=== PATIENT | male | born 1935 | race Caucasian/White ===

== ENCOUNTER 2020-07-26 10:22 | Outpatient (RCR) | payer MEDICARE, SELFPAY ==
[2020-07-16 09:08] VITALS: BMI 24.1
== END 2020-07-26 23:59 ==
LOC: IMMUN 10:22
PROVIDERS: PCP Internal Medicine; Visit Provider Family Medicine
DX: Z23 Encounter for immunization (principal)
CPT/HCPCS: 0011A; 0012A; 91301

== ENCOUNTER → 2020-07-30 06:45 | Outpatient (CLI) | payer MEDICARE, SELFPAY ==
[2020-07-16 09:08] VITALS: BMI 24.1
--- NOTE | 2020-07-30 15:34 | STRESSREP_ITS ---
Stress Test Report Pharmacologic myocardial perfusion stress test. 84-year-old man with a history of chronic persistent atrial fibrillation. Stress protocol: Resting EKG demonstrates atrial fibrillation with a rate of 63 bpm normal intervals are noted resting blood pressure is 194 110 mmHg. 0.4 mg of regadenoson was infused per usual protocol followed by rapid venous saline flush injection continuous EKG monitoring was performed. The maximum heart rate attained was 87 bpm which was 63% of max impacted heart rate the maximum workload was 1 metabolic equivalent. At rest there were no ST or T wave changes noted suggest abnormal flow reserve at peak infusion nonspecific ST-T wave changes were noted with no meet the criteria for ischemia. No clinical angina was noted. Myocardial perfusion protocol. 11.5 mCi of technetium 99m sestamibi was injected at rest. 0.4 mg of regadenoson was infused per usual protocol. At peak infusion 32.6 mCi of clare hnetium 99m sestamibi was injected stress images were obtained stress and rest images were reconstructed and compared in the short axis vertical long horizontal long axis. Gated images were also obtained per Perfusion SPECT analysis: Review of the stress images demonstrate normal uptake of tracer noted in all areas of the myocardium the resting images similar demonstrate normal uptake of tracer noted in all areas of the myocardium. No reversibility is noted suggest ischemia no previous infarct is noted. Gated SPECT analysis: The gated ejection fraction is 67%. Conclusion: Normal pharmacologic myocardial perfusion stress test. Chronic atrial fibrillation.
== END ==
PROVIDERS: PCP Internal Medicine; Referring Provider Physician Assistant Medical; Visit Provider Physician Assistant Medical
DX: R07.9 Chest pain, unspecified (principal)
CPT/HCPCS: 78452; 93017; A9500; A4216; J2785

== ENCOUNTER → 2020-11-06 12:23 | Outpatient (CLI) | payer MEDICARE, SELFPAY ==
[2020-11-06 08:32] VITALS: BMI 23.9
--- NOTE | 2020-11-06 12:30 | RAD_ITS ---
STUDY: X-RAY CHEST REASON FOR EXAM: Male, 85 years old. Cad TECHNIQUE: PA and lateral views of the chest. COMPARISON: Comparison is made with prior study dated 11/07/2011. FINDINGS: There is hyperinflation of the lungs consistent with chronic obstructive lung disease (COPD). There is a 8.5 mm rounded nodular density in the right lung base. This may represent a nipple shadow. Repeat frontal chest radiograph with nipple markers recommended. There is no demonstrated pleural abnormality. Normal size heart. Normal mediastinum and slick. Normal visualized pulmonary arteries. There is atherosclerotic calcification of the aortic arch with tortuosity. There are degenerative changes of the visualized thoracic spine. Normal visualized ribs, clavicles, and shoulders. There is no demonstrated abnormality of the visualized soft tissue structures of the upper abdomen. RAD/Chest PA and Lateral IMPRESSION: Hyperinflation. New 8.5 mm nodular density at the right lung base. This may represent a nipple shadow. Repeat frontal radiograph with nipple markers recommended. Electronically Signed: Jeffrey Jama MD at 12:31 EDT , Service support ,
[2020-11-06 13:52] LABS: Absolute Lymphocyte Count 1.41 X10^3/uL (0.83-4.51); Absolute Neutrophil Count 4.7 X10^3/uL (2.0-7.7); Basophil# 0.04 X10^3/uL; Basophil% 0.6 % (0-1); Eosinophil# 0.07 X10^3/uL; Hematocrit 43.7 % (40-54); Hemoglobin 14.2 g/dL (13.0-16.5); Lymphocyte # 1.41 X10^3/ul (0.83-4.51); Lymphocyte % 20.6 % (19-41); Mean Corp Hgb Conc 32.5 g/dL (32-36); Mean Corpuscular Hgb 30.1 pg (27.0-32.0); Mean Corpuscular Volume 92.6 fL (80-94); Mean Platelet Vol. 10.8 fl (6.2-12.0); Monocyte# 0.65 X10^3/uL; Monocyte% 9.5 % (0-10); NRBC Flagged by Analyzer 0 % (0-5); Neutrophil # 4.66 X10^3/uL (2.7-7.7); Neutrophil % 67.9 % (47-70); Platelet Count 161 K/mm3 (150-450); RBC Distribution Width CV 12.8 % (11.6-14.6); RBC Distribution Width SD 44.1 fl (35.1-43.9); Red Blood Count 4.72 M/mm3 (4.6-6.2); White Blood Count 6.9 K/mm3 (4.4-11.0)
[2020-11-06 14:16] LABS: Anion Gap 2 (5-15); BUN 22 mg/dL (7-18); BUN/Creat Ratio 17.7 RATIO (10-20); Calcium,Total 9.8 mg/dL (8.5-10.1); Chloride 109 mmol/L (98-107); Creatinine, Serum 1.24 mg/dL (0.70-1.30); EST Glomerular Filtration Rate 59 mL/min (>60); Est Glom Filt Rate - Afr Amer 72 mL/min (>60); Glucose 77 mg/dL (74-106); Potassium 4.3 mmol/L (3.5-5.1); Sodium Level 140 mmol/L (136-145)
== END ==
PROVIDERS: PCP Internal Medicine; Referring Provider Internal Medicine Cardiovascular Disease; Visit Provider Internal Medicine Cardiovascular Disease
DX: I48.11 Longstanding persistent atrial fibrillation (principal); R07.9 Chest pain, unspecified; E78.5 Hyperlipidemia, unspecified; Z95.5 Presence of coronary angioplasty implant and graft
CPT/HCPCS: 36415; 71046; 80048; 85025

== ENCOUNTER 2020-11-12 08:47 | Day surgery (SDC) | payer MEDICARE, SELFPAY ==
[2020-11-06 08:32] VITALS: BMI 23.9
[2020-11-09 07:05] VITALS: BMI 23.9
[2020-11-12] VITALS (13 sets, daily range): BP systolic 134–169; BP diastolic 66–98; PULSE 44–65; RESP 14–20; TEMP 36.4–36.9; O2SAT 97–100; BMI 23.9
[2020-11-12 09:01] LABS: INR Fingerstick 1.3; Prothrombin Time Fingerstick 15.7 SEC (11.9-14.4)
--- NOTE | 2020-11-12 11:20 | CL.D_ITS ---
Patient Name: NATE MEZA Study Date: 11/12/2020 Performing: Juan Kaminski MD Ht: 66.92 inches 170 cm : 1935 Wt: 152.12 lbs 69 kg Age: 85 Gender: male BSA: 1.8 PROCEDURE(S) PERFORMED [id number]-LWT/COR/LV [id number], EACH ADD'L CORONARY ART, SAME MAJOR [id number] W OR WO PTCA, SINGLE CORONARY ARTERY CLINICAL PROFILE AND INDICATIONS Indications: Suspected CAD Heart Failure: None Stress/Imaging Date: 08/19/20ress Test with SPECT MPI: Negative CAD Presentations: Stable angina. CONCLUSIONS Previously placed stent in the LAD is patent with a poststenotic area of 75% stenosis, and a second d iagonal vessel with an ostial 60 to 70% stenosis. Moderate disease noted in the circumflex artery an d mild disease in the right coronary artery. Preserved ejection fraction. RECOMMENDATIONS Referred for immediate PCI DESCRIPTION OF PROCEDURE The patient arrived to the procedure lab. The risks and benefits of the procedure as well as a full d escription of our services here and current unavailability of surgical backup were fully explained to the patient and/or their significant other prior to the catheterization. The Timeout was completed, verifying the correct patient and procedure. The patient's procedural site was prepped and draped in the usual fashion. Local anesthetic was given subcutaneously to right radial region with Lidocaine 2% . Using a modified Seldinger technique, arterial access was obtained via the right radial artery, a 6 Fr sheath was inserted. Left Coronary Artery selective angiography was performed in multiple views u sing a 5 Fr. 4.0 [place] catheter. Right Coronary Artery selective angiography was then performed in mu ltiple views using a 5 Fr. 4.0 [place] catheter. Left Ventriculography was performed in CEVALLOS projection using a 5 Fr. Pigtail catheter. LV to AO pullback pressures were then recorded. CORONARY ANGIOGRAPHY DOMINANCE: Right Dominant LEFT HEART ASSESSMENT Left Ventricular Ejection Fraction: by LV Gram 65 % Normal LV wall motion Normal Left Ventricular systolic function LEFT MAIN: Mild luminal irregularities LEFT ANTERIOR DESCENDING ARTERY: MID LAD: Previously placed stent is patent, 75 post stent % Stenosis DIAGONAL 1: Ostial - 40 % Stenosis DIAGONAL 2: Ostial - 60 % Stenosis CIRCUMFLEX ARTERY: MID CIRC: 50 % Stenosis RIGHT CORONARY ARTERY: PROX RCA: 30 % Stenosis COMPLICATIONS PROCEDURE MEDICATIONS Fentanyl 50 mcg IV Versed 1 mg IV Oxygen: 2 L/min via nasal cannula Heparin diluted in 23cc Heparinized saline. Patient given 10cc IA of this solution. 11/12/2020 10:52: 39 Heparin 4000 unit(s) IV 11/12/2020 11:12:05 Verapamil 2.5mg, Ntg 100mcgs, 2000 units of Heparin diluted in 23cc Heparinized saline. Patient give n 10cc IA of this solution. 11/12/2020 10:52:39 SUMMARY OF HEMODYNAMIC DATA Time AIR REST ECG 09:16:19 AO 202/110 (144) SA 10:43:08 AO 156/84 (109) 10:49:12 AO 132/83 (103) 10:54:53 LV 141/4, 6 11:00:51 LV 147/4, 5 11:00:58 LV 153/9, 10 11:01:40 LV 136/8, 8 11:01:46 LVp 130/7, 8 11:01:49 AOp 129/74 (98) 11:01:54 Signed By Juan Kaminski MD On 11/12/2020 11:19:11 Juan Kaminski MD
[2020-11-12] MEDS: TICAGRELOR 90 MG TABLET 180 MG PO (12:09)
[2020-11-12] MEDS: 0.9% Normal Saline 1,000 ML 80 ML IV (12:09)
--- NOTE | 2020-11-12 12:26 | CL.I_ITS ---
Patient Name: NATE MEZA Study Date: 11/12/2020 Performing: Paulette Andrade MD Ht: 66.92 inches 170 cm : 1935 Wt: 152.12 lbs 69 kg Age: 85 Gender: male BSA: 1.8 PROCEDURE(S) PERFORMED [id number], EACH ADD'L CORONARY ART, SAME MAJOR [id number] W OR WO PTCA, SINGLE CORONARY ARTERY CLINICAL PROFILE AND CO-MORBIDITIES Indications: Suspected CAD Heart Failure: None Stress/Imaging Date: 08/19/20 Stress Test with SPECT MPI: Negative CAD Presentations: Stable angina. CONCLUSIONS Successful PCI with FREDY to LAD and PTCA alone to D2 RECOMMENDATIONS DESCRIPTION OF PROCEDURE The patient arrived to the procedure lab. The risks and benefits of the procedure as well as a full d escription of our services here and current unavailability of surgical backup were fully explained to the patient and/or their significant other prior to the catheterization. The Timeout was completed, verifying the correct patient and procedure. The patient's procedural site was prepped and draped in the usual fashion. Local anesthetic was given subcutaneously to right radial region with Lidocaine 2% Using a modified Seldinger technique,arterial access was obtained via the right radial artery, a 6Fr sheath was inserted. Left Coronary Artery selective angiography was performed in multiple views usin g a 5 Fr. 4.0 [place] catheter. Right Coronary Artery selective angiography was then performed in multi ple views using a 5 Fr. 4.0 [place] catheter. Left Ventriculography was performed in CEVALLOS projection usi ng a 5 Fr. Pigtail catheter. LV to AO pullback pressures were then recorded.The images were reviewed and options discussed. A decision was then made to proceed with an Intervention, IVUS o r other adjunct procedure. XB4 Guide catheter was inserted and engaged into the LCA. BMW Guide wire was advanced to the 2nd Diagonal. RUNTHROUGH Guide wire was advanced to the LAD. 2.0X12 EMERGE Balloon catheter was inserted ON THE BMW Balloon catheter was advanced across lesion in the second diagonal, ostial PTCA balloon in flated at 6 atms for 15 secs. PTCA balloon inflated at 6 atms for 12 secs. 2.5X26 ORSIRO Drug Eluting stent was advanced across the lesion in the LAD, mid. ON THE RUNTHROUGH WIRE Angiogram performed pre stent deployment. BMW Guide wire was advanced to the 2nd Diagonal through the stent 3.5X8 Balloon ca theter was inserted post stent. ON THE RUNTHROUGH PTCA balloon inflated at 6 atms for 13 secs. PTCA b alloon inflated at 10 atms for 12 secs. Angiogram performed post stent deployment. Angiogram performe d pre balloon dilatation. 1.5x15 emerge Balloon catheter was inserted on the bmw down the 2nd diag PT CA balloon inflated at 10 atms for 10 secs. 2.5x15 emerge Balloon catheter was inserted post stent on the runthrough The arterial sheath was pulled and a TR Band was applied for hemostasi s - 17cc air INTERVENTION INFORMATION LESION SITE: LAD (Mid) Lesion Complexity: High/C, chronic total occlusion: No, lesion at bifurcation: Yes, thrombus present: No, lesion length: 20 mm, culprit lesion: Yes, Previously treated lesion: No, In-stent restenosis: N o Pre Stenosis: 80 % Pre intervention ARSLAN flow: 3 PROCEDURE: Drug Eluting Stent with post dilatation the proximal part of the stent was post dilated with a 3.5 mm balloon and kissing balloon inflation w as also performed in the end. Post Stenosis: 0 % Post intervention ARSLAN flow: 3 Lesion Devices: [employer] 6 Fr EBU3.5 100cm Guide Catheter Cardinal 6 Fr XB4.0 100cm Guide Catheter Terumo .014 Runthrough Extra Floppy 180cm straight John Sci EMERGE MR 2.00x12 BALLOON John Sci EMERGE MR 3.50x08 BALLOON John Sci EMERGE MR 2.50x15 BALLOON LESION SITE: 2nd Diagonal (Ostial) Lesion Complexity: High/C, chronic total occlusion: No, lesion at bifurcation: Yes, thrombus present: No, lesion length: 10 mm, culprit lesion: Yes, Previously treated lesion: No Pre Stenosis: 70 % Pre intervention ARSLAN flow: 3 PROCEDURE: Balloon Angioplasty This vessel was jailed by the stent in the LAD. The lesion was predilated prior to stent in the LAD a nd after the stent deployment kissing balloon inflation was performed as part of a provisional stent approach Post Stenosis: 70 % Post intervention ARSLAN flow: 3 Lesion Devices: [place] .014 BMW Ryan Straight 190cm Cardinal 6 Fr XB4.0 100cm Guide Catheter John Sci EMERGE MR 2.00x12 BALLOON John Sci EMERGE MR 1.50x15 BALLOON COMPLICATIONS No Complications PROCEDURE MEDICATIONS Fentanyl 50 mcg IV Versed 1 mg IV Oxygen: 2 L/min via nasal cannula Brilinta 180 mg PO @ 11/12/2020 12:09:52 Heparin diluted in 23cc Heparinized saline. Patient given 10cc IA of this solution. 11/12/2020 10:52: 39 Heparin 4000 unit(s) IV 11/12/2020 11:12:05 Verapamil 2.5mg, Ntg 100mcgs, 2000 units of Heparin diluted in 23cc Heparinized saline. Patient give n 10cc IA of this solution. 11/12/2020 10:52:39 SUMMARY OF HEMODYNAMIC DATA Time AIR REST ECG 09:16:19 AO 202/110 (144) SA 10:43:08 AO 156/84 (109) 10:49:12 AO 132/83 (103) 10:54:53 LV 141/4, 6 11:00:51 LV 147/4, 5 11:00:58 LV 153/9, 10 11:01:40 LV 136/8, 8 11:01:46 LVp 130/7, 8 11:01:49 AOp 129/74 (98) 11:01:54 Signed By Paulette Andrade MD On 11/12/2020 12:25:43 Paulette Andrade MD
--- NOTE | 2020-11-12 13:28 | CRPH1.INST_ITS ---
General Education CAD and cardiac anatomy and function:: Patient communicates acknowledgment Explanation of diagnoses and procedures:: Patient communicates acknowledgment Sign/Symptoms of ID:: Patient communicates acknowledgment Antiplatelet therapy: Patient communicates acknowledgment Proper use of NTG-SL: Patient communicates acknowledgment Emergency procedures and activation of EMS: Patient communicates acknowledgment Compliance of all prescribed medications: Patient communicates acknowledgment Smoking Patient Nicotine/Smoking Risk Factors Are:: Cigarettes Recommendations Include:: Smoking cessation strategies/Smoking packet, Second- hand smoke recommendation, Participation in a smoking cessation program, Previous smoker; encourage continued cessation Nicotine/Smoking Response Code:: Patient communicates acknowledgment Dyslipidemia Patient Dyslipidemia Risk Factors Are:: Total Cholesterol, Triglycerides, HDL, LDL Recommendations Include:: Lipid profile not available Dyslipidemia Response Code:: Patient communicates acknowledgment Hypertension Recommendations Include:: Maintain BP <130/85, BP <130/80 if diabetic, DASH dietary guidelines, Decrease/maintain normal body weight Hypertension:: Patient communicates acknowledgment Heart Disease Patient Heart Disease Risk Factors Are:: Family history of heart disease < 65 years old Recommendations Include:: Educated family members of their risk, Educated family members of importance of prevention of heart disease Heart Disease Response Code:: Patient communicates acknowledgment
--- NOTE | 2020-11-12 13:28 | CRPHASE1_ITS ---
Patient Communication PHII Cardiac Rehab Discussed with Patient:: Yes Guide to Cardiac Rehab Given to Patient:: Yes Cardiac Rehab Facility Choice List Given to Patient:: Yes Choice Program [facility] CR PHII:: Communication Given to CR, Refer to [facility] House Supervisor:: Elizabet Andrade Phase II Cardiac Rehab:: Yes Sessions:: 36 sessions - 3 days/wk, 12 weeks Cardiac Rehabilitation Info Cardiac Rehabilitation Program Information: Cardiac Rehabilitation is important for patients like you who are recovering from a heart problem. Cardiac rehabilitation programs are recognized as integral to the continued care of the patient with coronary heart disease. The cardiac rehabilitation program is designed to optimize a patient's physical, psychological, and social functioning. Health rn patient care work in cardiac rehabilitation programs and assist you with getting the treatments you need to get stronger and healthier - like exercise, healthy eating habits, and medications. Cardiac rehabilitation has been show to help people with heart problems live longer and have better life enjoyment than people who do not go to cardiac rehabilitation. Please contact the Cardiac Rehabilitation Program at [facility] at in two weeks if you have not heard from them.
[2020-11-12] MEDS: 0.9% Normal Saline 500 ML IV.SOLN. IV (16:13)
[2020-11-12] MEDS: TICAGRELOR 90 MG TABLET PO (21:14)
[2020-11-13 02:59] VITALS: PULSE 63
[2020-11-13 03:10] VITALS: BP 160/98; PULSE 69; RESP 14; TEMP 36.6; O2SAT 98
[2020-11-13 06:05] LABS: Hematocrit 40.7 % (40-54); Hemoglobin 13.5 g/dL (13.0-16.5); Mean Corp Hgb Conc 33.2 g/dL (32-36); Mean Corpuscular Hgb 30.5 pg (27.0-32.0); Mean Corpuscular Volume 92.1 fL (80-94); Mean Platelet Vol. 10.4 fl (6.2-12.0); Platelet Count 141 K/mm3 (150-450); RBC Distribution Width CV 12.6 % (11.6-14.6); RBC Distribution Width SD 42.8 fl (35.1-43.9); Red Blood Count 4.42 M/mm3 (4.6-6.2); White Blood Count 7.3 K/mm3 (4.4-11.0)
[2020-11-13 06:46] VITALS: PULSE 69
[2020-11-13] MEDS: Metoprolol Tartrate 25 MG Tablet PO (06:46)
[2020-11-13] MEDS: Lisinopril 5 MG Tablet PO (06:46)
[2020-11-13 06:50] LABS: ALB/GLOB Ratio 1.1 RATIO (0.9-2.4); AST(SGOT) 26 U/L (15-37); Alanine Aminotransfer ALT/SGPT 29 U/L (16-61); Albumin, Serum 3.6 g/dL (3.2-5.0); Alkaline Phosphatase 75 U/L (45-117); Anion Gap 4 (5-15); BUN 22 mg/dL (7-18); BUN/Creat Ratio 17.6 RATIO (10-20); Calcium,Total 9.2 mg/dL (8.5-10.1); Chloride 111 mmol/L (98-107); Creatinine, Serum 1.25 mg/dL (0.70-1.30); EST Glomerular Filtration Rate 59 mL/min (>60); Est Glom Filt Rate - Afr Amer 71 mL/min (>60); Estimated Creatinine Clearance 41.86 ml/min; Globulin 3.3 g/dL (2.2-4.2); Glucose 93 mg/dL (74-106); Potassium 4.2 mmol/L (3.5-5.1); Protein, Total 6.9 g/dL (6.4-8.2); Sodium Level 140 mmol/L (136-145)
[2020-11-13 07:03] VITALS: PULSE 71
--- NOTE | 2020-11-13 08:14 | PCM.PN.CARD ---
Subjective Subjective Patient seen and evaluated. Did well post PCI. No complaints. Objective Data Vital Signs: Vital Signs Temp Pulse Resp BP Pulse Ox 97.9 F 71 14 160/98 H 98 11/13/20 03:10 11/13/20 07:03 11/13/20 03:10 11/13/20 03:10 11/13/20 03:10 Oxygen Flow Rate (L/min) 2 Oxygen Delivery Method Room Air Weight: 146 lb 9.718 oz Body Mass Index (BMI) 23.9 Intake & Output: Intake and Output for Last 24 Hours 11/11/20 11/12/20 11/13/20 23:59 23:59 23:59 Intake Total 941.33 / 941.33 120 / 120 Output Total 550 / 550 250 / 250 Balance 391.33 / 391.33 -130 / -130 Lab / Micro Data Result Diagrams: 11/13/20 05:30 11/13/20 05:30 Labs: Laboratory Results - last 24 hr 11/12/20 11/13/20 11/13/20 08:56 05:30 05:30 WBC 7.3 RBC 4.42 L Hgb 13.5 Hct 40.7 MCV 92.1 MCH 30.5 MCHC 33.2 RDW Std Deviation 42.8 RDW Coeff of Rosana 12.6 Plt Count 141 L MPV 10.4 POC PT 15.7 H INR 1.3 Sodium 140 Potassium 4.2 Chloride 111 H Carbon Dioxide 25.0 Anion Gap 4 L BUN 22 H Creatinine 1.25 Estim Creat Clear Calc 41.86 Est GFR (MDRD) Af Amer 71 Est GFR (MDRD) Non-Af 59 L BUN/Creatinine Ratio 17.6 Glucose 93 Calcium 9.2 Total Bilirubin 2.00 H AST 26 ALT 29 Alkaline Phosphatase 75 Total Protein 6.9 Albumin 3.6 Globulin 3.3 Albumin/Globulin Ratio 1.1 Cardiology Labs/Tests 11/12/20 08:56: INR 1.3 11/13/20 05:30: WBC 7.3, RBC 4.42 L, Hgb 13.5, Hct 40.7, MCV 92.1, MCH 30.5, MCHC 33.2, Plt Count 141 L, MPV 10.4 11/13/20 05:30: Sodium 140, Potassium 4.2, Chloride 111 H, Carbon Dioxide 25.0, Anion Gap 4 L, BUN 22 H, Creatinine 1.25, Est GFR (MDRD) Af Amer 71, Est GFR (MDRD) Non-Af 59 L, BUN/Creatinine Ratio 17.6, Glucose 93, Calcium 9.2, Total Bilirubin 2.00 H Rhythm: EKG: ECHO: Stress Test: Cardiac Cath: PCI: CT Surgery: Holter monitor: EPS: PPM: CXR: Chest CT Scan: Assessment & Plan Assessment/Plan (1) History of coronary artery stent placement: PLAN: Patient is status post angioplasty and stenting of the left anterior descending artery as well as angioplasty of the second diagonal vessel. Patient appears to be. Follow-up. Will stay on aspirin, resume warfarin, and continue Brilinta. (2) Longstanding persistent atrial fibrillation: PLAN: Patient will continue with beta-pepe for rate control as well as anticoagulation. (3) Essential (primary) hypertension: PLAN: Will be treated with antihypertensive therapy.
--- NOTE | 2020-11-13 08:23 | PCM.DC ---
Discharge Instructions Diet Discharge Diet: Low fat / Low cholesterol Activity Discharge Activity: No Restrictions Follow Up Care When: dr michelle will call for follow up Test Results: Test results from this visit will be discussed in further detail at your follow-up appointment, if applicable. Discharge Plan Admission Primary Reason for Your Visit: for angioplasty Attending Provider: Juan Michelle Primary Care Provider: Yeni Gregg Instructions Patient Instructions: ED Chest Pain, Noncardiac Discharge Orders/Prescriptions Prescriptions: New Brilinta 90 mg Tablet 90 mg PO BID Qty: 180 RF: 3 Continued metoprolol tartrate 50 mg tablet 25 mg PO BID RF: 0 simvastatin 80 mg tablet 40 mg PO QHS RF: 0 finasteride [Proscar] 5 mg tablet 5 mg PO DAILY RF: 0 aspirin [Adult Aspirin Regimen] 81 mg tablet,delayed release (DR/EC) 81 mg PO DAILY RF: 0 saw palmetto 500 mg capsule 500 mg PO DAILY RF: 0 omega-3 fatty acids [Fish Oil Concentrate] 1,000 mg capsule 1,000 mg PO DAILY RF: 0 multivitamin Tablet 1 tab PO DAILY RF: 0 cholecalciferol (vitamin D3) 25 mcg (1,000 unit) capsule 2,000 unit PO DAILY RF: 0 lisinopril 10 mg tablet 5 mg PO DAILY RF: 0 warfarin 2 mg tablet 2 mg PO .3XW RF: 0 warfarin 3 mg tablet 3 mg PO 4XW RF: 0 Refresh Tears 0.5 % drops 1 drp OPHTHALMIC TID RF: 0 nitroglycerin 0.4 mg tablet, sublingual 0.4 mg SUBLINGUAL Q5-15M PRN (Reason: chest pain) Qty: 25 RF: 3 Referrals / Follow Up: Yeni Gregg MD [Primary Care Provider] - Disposition Disposition (needs filled in before D/C Order can be placed): Home, self care
[2020-11-13] MEDS: TICAGRELOR 90 MG TABLET PO (09:03)
[2020-11-13 09:05] VITALS: BP 149/101; PULSE 75; RESP 18; TEMP 36.7; O2SAT 97
--- NOTE | 2020-11-13 09:18 | PHA.DC.MC ---
Pharmacy Service has performed discharge medication reconciliation and counseling for this patient. 1. TICAGRELOR 90MG PO BID The patient's discharge medication list was reviewed for discrepancies and discrepancies were resolved. Home Medications aspirin 81 mg tablet,delayed release 81 mg PO DAILY 03/07/19 finasteride 5 mg tablet 5 mg PO DAILY 03/07/19 metoprolol tartrate 50 mg tablet 25 mg PO BID tab 03/07/19 multivitamin 1 tab PO DAILY 03/07/19 omega-3 fatty acids 1,000 mg capsule 1,000 mg PO DAILY 03/07/19 saw palmetto 500 mg capsule 500 mg PO DAILY cap 03/07/19 simvastatin 80 mg tablet 40 mg PO QHS tab 03/07/19 cholecalciferol (vitamin D3) 25 mcg (1,000 unit) capsule 2,000 unit PO DAILY cap 09/29/19 lisinopril 10 mg tablet 5 mg PO DAILY tab 09/29/19 carboxymethylcellulose sodium 0.5 % eye drops 1 drp OPHTHALMIC TID 07/16/20 nitroglycerin 0.4 mg sublingual tablet 0.4 mg SUBLINGUAL Q5-15M PRN #25 tab 07/16/20 warfarin 2 mg tablet 2 mg PO .3XW tab 07/16/20 warfarin 3 mg tablet 3 mg PO 4XW 07/16/20 ticagrelor [Brilinta] 90 mg PO BID #180 tab 11/13/20 The patient was counseled on the following discharge medications and changes in medications for homegoing were reviewed. The Reason for Use, instructions for use, and potential side effects were reviewed for all new medications. The patient's questions regarding all of their medications were answered. The patient was able to verbally demonstrate an understanding of their discharge medications. Patient counseled by compounding pharmacy technician
--- NOTE | 2020-11-13 09:53 | CASEMGMT ---
RN SALLIE called [facility] as pt is to be on Brillinta. Copay is $118. ERIK RIZO in to pt room, savings card given and explanation provided. Pt aware and verbalizes understanding.
--- NOTE | 2020-11-13 12:15 | EKG12_ITS ---
Test Reason : AM EKG Blood Pressure : / mmHG Vent. Rate : 063 BPM Atrial Rate : 250 BPM P-R Int : 000 ms QRS Dur : 084 ms QT Int : 410 ms P-R-T Axes : 000 071 051 degrees QTc Int : 419 ms Atrial fibrillation Abnormal ECG Confirmed by MEGHAN ROBLES, YVETTE ([id number]), oil exploration engineer SEBASTIAN BRODERICK ([id number]) on 11/14/2020 10:22:17 AM Referred By: SHERON Confirmed By:YVETTE CHRISTIANSON MD
== END 2020-11-13 08:32 | disposition home or self-care (01) ==
LOC: CLSP 08:51 → PCU 16:30
PROVIDERS: Specialist; PCP Internal Medicine; Visit Provider Internal Medicine Cardiovascular Disease
DX: I25.119 Atherosclerotic heart disease of native coronary artery with unspecified angina pectoris (principal); T82.855A Stenosis of coronary artery stent, initial encounter; I10 Essential (primary) hypertension; E78.5 Hyperlipidemia, unspecified; I48.11 Longstanding persistent atrial fibrillation; Z95.5 Presence of coronary angioplasty implant and graft; Z79.01 Long term (current) use of anticoagulants; Z79.899 Other long term (current) drug therapy; Z87.891 Personal history of nicotine dependence
CPT/HCPCS: 36415; 36416; 80053; 85027; 85610; 92921; 92928; 93005; 93458; 99152; 99153; J7030; J7040; Q9967; C1725; C1769; C1874; C1887; C1894; C9600; J1327

== ENCOUNTER → 2020-12-03 13:54 | Outpatient (CLI) | payer MEDICARE, SELFPAY ==
[2020-11-12 14:59] VITALS: BMI 23.9
--- NOTE | 2020-12-03 13:58 | ART_ITS ---
Reason For Study: Decreased Pedal Pulses Procedure A bilateral lower extremity continuous wave Doppler with analog waveform analysis,segmental pressures,and ankle brachial indexes without exercise. Left Segmental Pressures Left brachial= 135mmHg. Left calf = 161mmHg. Left posterior tibial artery = 99mmHg. Left dorsalis pedis artery = 95mmHg. Left digit = 62 mmHg. The left dorsalis pedis waveforms are biphasic. The left posterior tibial artery waveforms are biphasic. Right Segmental Pressures Right brachial= 130mmHg. Right posterior tibial artery = 146mmHg. Right dorsalis pedis artery = 129mmHg. Right digit = 86 mmHg. The right dorsalis pedis waveforms are biphasic. The right posterior tibial artery waveforms are biphasic. Indices The right ankle brachial index by the posterior tibial artery is 1.08. The right ankle brachial index by the dorsalis pedis is 0.96. The right digital-brachial index is 0.64. The left ankle brachial index by the posterior tibial artery is 0.73. The left ankle brachial index by the dorsalis pedis is 0.70. The left digital-brachial index is 0.46. VL/Lower Ext Art Exam w/o Exercis Interpretation Summary Right leg with biphasic flow and an HELDER 1.08. Left leg with biphasic flow and a n HELDER 0.73. Digit brachial index of 0.64 and 0.46. Ordering Physician: Cary Tsang Referring Physician: Yeni Gregg M.D. Performed By: Evelia Meyer RVT and Student
== END ==
PROVIDERS: PCP Internal Medicine; Referring Provider Physician Assistant Medical; Visit Provider Physician Assistant Medical
DX: R09.89 Other specified symptoms and signs involving the circulatory and respiratory systems (principal)
CPT/HCPCS: 93923

== ENCOUNTER 2020-12-16 20:44 | Emergency (ER) | payer MEDICARE, SELFPAY ==
[2020-12-06 14:44] VITALS: BMI 23.3
[2020-12-16 20:45] VITALS: BP 141/82; PULSE 62; RESP 14; TEMP 36.4; O2SAT 99; BMI 22.6
--- NOTE | 2020-12-16 21:02 | CT_ITS ---
STUDY: CT BRAIN WITHOUT CONTRAST REASON FOR EXAM: Male, 85 years old. Dizziness RADIATION DOSAGE (If Supplied By Facility): CTDIvol = ( 44.99 ) mGy, DLP = ( 829.85 ) mGycm TECHNIQUE: Transaxial CT imaging of the brain was performed without administration of intravenous contrast material. Individualized dose optimization techniques were used for this CT. COMPARISON: No relevant priors. FINDINGS: Normal soft tissue structures. Normal calvarium. There is mild cerebral atrophy with widening of the extra-axial spaces and ventricular dilatation. There are areas of decreased attenuation within the white matter tracts of the supratentorial brain, consistent with microvascular disease changes. Old lacunar infarcts in the basal ganglia Normal brainstem. Normal cerebellum. Stable vascular calcifications There is no intracranial hemorrhage. There are no findings of an acute ischemic infarction. Normal visualized paranasal sinuses. CT/Brain/Head without Contrast IMPRESSION: Chronic involutional changes of the brain. No acute hemorrhage Electronically Signed: Davis Sanders MD at 22:14 EDT , Service support ,
--- NOTE | 2020-12-16 21:02 | EKG12_ITS ---
Test Reason : DIZZINESS Blood Pressure : / mmHG Vent. Rate : 064 BPM Atrial Rate : 214 BPM P-R Int : 000 ms QRS Dur : 084 ms QT Int : 398 ms P-R-T Axes : 000 064 038 degrees QTc Int : 410 ms Atrial fibrillation Abnormal ECG Confirmed by BRI HOLBROOK MD ([id number]), metropolitan editor SEBASTIAN BRODERICK ([id number]) on 12/17/2020 11:25:47 AM Referred By: CORA Confirmed By:BRI HOLBROOK MD
--- NOTE | 2020-12-16 21:03 | EDS_ITS ---
HPI History of Present Illness Chief Complaint: Dizziness Informant: patient, spouse/S.O. and family Onset/Context/Timing Onset: Yesterday Context: Gradual Onset Timing: Intermittent Current Severity: Mild Maximum Severity: Mild Narrative Narrative: 85-year-old male significant past medical history for coronary disease with 2 cardiac stents. Had his last stent placed in October. He is on Coumadin, Plavix and aspirin. Just dates he is felt dizzy last 2 days. Denies any history of stroke. Denies any headache or chest pain. No falls or head trauma. Denies any recent illness. He denies any nausea, vomiting, diarrhea or fever. No abdominal pain. No room spinning dizziness. No strokelike symptoms. Prior similar symptoms: No PFSH PFSH Medical History Atherosclerosis of coronary artery of [place] heart without angina pectoris Benign neoplasm of colon BPH (benign prostatic hyperplasia) BPH (benign prostatic hyperplasia) Diverticulosis Essential (primary) hypertension HLD (hyperlipidemia) Longstanding persistent atrial fibrillation (06/2010) Nonrheumatic mitral (valve) prolapse Obstructive sleep apnea Retinal vein occlusion Home Medications aspirin 81 mg tablet,delayed release 81 mg PO DAILY 03/07/19 [History Last Taken 11/12/20] finasteride 5 mg tablet 5 mg PO DAILY 03/07/19 [History Last Taken Unknown] metoprolol tartrate 50 mg tablet 25 mg PO BID tab 03/07/19 [History Last Taken 11/12/20] multivitamin 1 tab PO DAILY 03/07/19 [History Last Taken Unknown] omega-3 fatty acids 1,000 mg capsule 1,000 mg PO DAILY 03/07/19 [History Last Taken Unknown] saw palmetto 500 mg capsule 500 mg PO DAILY cap 03/07/19 [History Last Taken Unknown] simvastatin 80 mg tablet 40 mg PO QHS tab 03/07/19 [History Last Taken Unknown] cholecalciferol (vitamin D3) 25 mcg (1,000 unit) capsule 2,000 unit PO DAILY cap 09/29/19 [History Last Taken Unknown] lisinopril 10 mg tablet 5 mg PO QHS tab 09/29/19 [History Last Taken 11/12/20] carboxymethylcellulose sodium 0.5 % eye drops 1 drp OPHTHALMIC TID 07/16/20 [History Last Taken Unknown] nitroglycerin 0.4 mg sublingual tablet 0.4 mg SUBLINGUAL Q5-15M PRN #25 tab 07/16/20 [Rx Last Taken Unknown] warfarin 2 mg tablet 2 mg PO .3XW tab 07/16/20 [History Last Taken Unknown] warfarin 3 mg tablet 3 mg PO 4XW 07/16/20 [History Last Taken 11/07/20] clopidogrel 75 mg tablet 75 mg PO DAILY #90 tab 12/06/20 [Rx Last Taken Unknown] Allergy/AdvReac Type Severity Reaction Status Date / Time cinnamon Allergy rash Verified 12/16/20 20:47 Penicillins Allergy hives Verified 12/16/20 20:47 chocolate Allergy rash Uncoded 12/06/20 14:44 Surgical History History of coronary artery stent placement (11/12/20) Stented coronary artery Social History Smoking Status: Former smoker how long ago did patient quit smokin07/09/10 alcohol intake: current alcohol intake frequency: a few times a month substance use type: does not use ROS ROS ED ROS Narrative Denies recent illness. Review of Systems ROS Unobtainable: Denies due to encephalopathy Constitutional Constitutional ED: Denies chills or fever(s) Eyes Eyes: Denies change in vision ENT ENT ED: Denies ear pain or sore throat Cardiovascular Cardiovascular: Denies chest pain Respiratory/Chest Respiratory/Chest: Denies cough or dyspnea Gastrointestinal Gastrointestinal: Denies abdominal pain, diarrhea, melena, nausea or vomiting Genitourinary Genitourinary ED: Denies dysuria Musculoskeletal Musculoskeletal: Denies myalgias Integumentary Denies rash Neurologic Neurologic: Denies headache(s) Psychiatric Psychiatric: Denies depression Endocrine Endocrinology: Denies polyuria Allergic/Immunologic Allergic/Immunologic ED: Denies urticaria EXAM Physical Exam Narrative Exam Narrative: Elderly male no acute distress. Vital signs stable afebrile. HEENT exam unremarkable. PERRLA EOMI. No facial droop. Normal speech. No trauma. Lungs clear to auscultation. Heart rate about 60. No murmur. Chest wall nontender. Abdomen soft nontender. Patient moving all 4 extremities. Neurovascular intact. 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 Dorsi plantarflexion intact. Fingertip to nose and heel sa[place] within normal limits. No drift. No edema. Neurologically is awake alert with no focal motor deficits. Negative Hallpike. TMs are normal bilaterally no wax. NIH 0. Const Vital Signs: 12/16/20 20:45 12/16/20 20:53 12/16/20 21:51 Temperature 97.5 F L Temperature Source Temporal Pulse Rate 62 Pulse Rate [Lying] 66 Pulse Rate [Sitting] 72 Pulse Rate [Standing] 65 Respiratory Rate 14 Respiratory Effort Normal Non-Labored Respiratory Pattern Normal Blood Pressure 141/82 H Blood Pressure [Lying] 158/103 H Blood Pressure [Sitting] 142/96 H Blood Pressure [Standing] 149/96 H Blood Pressure Mean 101 Blood Pressure Mean [Lying] 121 Blood Pressure Mean [Sitting] 111 Blood Pressure Mean [Standing] 113 Pulse Ox 99 Oxygen Delivery Method Room Air Positive well nourished HEENT Reports moist mucous membranes Negative for trauma or tenderness Eyes PERRL and EOMs intact bilaterally Neck no lymphadenopathy, supple and no JVD General: Negative for tenderness Chest Wall inspection of chest normal and palpation of chest normal Resp normal respiratory effort and clear to auscultation bilaterally Cardio regular rate, regular rhythm and no murmurs GI normal to inspection, nondistended, normoactive bowel sounds, non-tender and non-distended Palpation: soft Back/Spine no CVA tenderness General Back: Negative for CVA tenderness Extremity normal to inspection General Extremety ED: Negative for edema or tenderness General Extremity: Negative for edema Neuro oriented x3 and CN's II-XII intact bilaterally Sensorium / Orientation: alert Motor Exam: strength 5/5 throughout Psych mental status grossly normal Skin no rashes or lesions noted and no wounds MDM MDM MDM Narrative Medical decision making narrative: Older male complaining of just not feeling well for the last month after having cardiac catheterization and stent. Also dizziness last 2 days. Benign exam. Undergoing evaluation with a CAT scan of his head. Repeat exam patient is doing well at 1020. Exam unchanged. We discussed test results and he will be discharged to home with outpatient follow-up. Lab Data Attestation: I reviewed the patient's lab results. Lab results narrative: CBC unremarkable white count of 5. Hemoglobin 13. INR is 2.5 he is on Coumadin. Electrolytes show a gap of 6. Creatinine 1.68. A normal troponin. Labs: Laboratory Results - last 24 hr 12/16/20 12/16/20 12/16/20 21:05 21:05 21:05 WBC 5.6 RBC 4.25 L Hgb 13.1 Hct 39.2 L MCV 92.2 MCH 30.8 MCHC 33.4 RDW Std Deviation 43.4 RDW Coeff of [place] 13.0 Plt Count 155 MPV 10.7 Immature Gran % (Auto) 0.400 Neut % (Auto) 63.9 Lymph % (Auto) 20.2 [place] % (Auto) 11.9 H Eos % (Auto) 3.1 Baso % (Auto) 0.5 Absolute Neuts (auto) 3.6 Absolute Lymphs (auto) 1.12 Nucleated RBC % 0 PT 25.9 H INR 2.5 Sodium 142 Potassium 4.1 Chloride 109 H Carbon Dioxide 27.0 Anion Gap 6 BUN 22 H Creatinine 1.68 H Estim Creat Clear Calc 31.85 Est GFR (MDRD) Af Amer 50 L Est GFR (MDRD) Non-Af 42 L BUN/Creatinine Ratio 13.1 Glucose 98 Calcium 9.3 Troponin I < 0.015 Radiography Chest X-Ray - ED: 1 View, Read by ED Physician, Unchanged, Heart, Lungs, Mediastinum, Bony Structures, No Acute Disease and Chronic Changes Diagnostic Testing: Radiology Impression Brain CT 12/16/20 21:02 IMPRESSION: Chronic involutional changes of the brain. No acute hemorrhage Electronically Signed: Davis Sanders MD at 22:14 EDT , Service support , EKG Initial EKG: Attestation: I personally reviewed and interpreted this EKG as follows: Interpretation: Atrial Fibrillation Comments: A. fib rate of 64. No significant change from prior EKG from October. Prior: Unchanged Discharge Plan Triage Chief Complaint: Dizziness ED Provider: Jaswant Lee Dx/Rx/DC Orders Clinical Impression: Dizziness, nonspecific Instructions: ED Dizziness, Uncertain Cause Prescriptions: No Action metoprolol tartrate 50 mg tablet 25 mg PO BID RF: 0 simvastatin 80 mg tablet 40 mg PO QHS RF: 0 finasteride [Proscar] 5 mg tablet 5 mg PO DAILY RF: 0 aspirin [Adult Aspirin Regimen] 81 mg tablet,delayed release (DR/EC) 81 mg PO DAILY RF: 0 saw palmetto 500 mg capsule 500 mg PO DAILY RF: 0 omega-3 fatty acids [Fish Oil Concentrate] 1,000 mg capsule 1,000 mg PO DAILY RF: 0 multivitamin Tablet 1 tab PO DAILY RF: 0 cholecalciferol (vitamin D3) 25 mcg (1,000 unit) capsule 2,000 unit PO DAILY RF: 0 lisinopril 10 mg tablet 5 mg PO QHS RF: 0 warfarin 2 mg tablet 2 mg PO .3XW RF: 0 warfarin 3 mg tablet 3 mg PO 4XW RF: 0 clopidogrel 75 mg tablet 75 mg PO DAILY Qty: 90 RF: 3 Refresh Tears 0.5 % drops 1 drp OPHTHALMIC TID RF: 0 nitroglycerin 0.4 mg tablet, sublingual 0.4 mg SUBLINGUAL Q5-15M PRN (Reason: chest pain) Qty: 25 RF: 3 Primary Care Provider: Yeni Gregg Referrals: Yeni Gregg MD [Primary Care Provider] - 3-5 Days if not improving Activity Restrictions/Additional Instructions: Your lab work tonight is unremarkable. Your CAT scan and EKG were unremarkable. Follow-up with your primary care physician if not improving. Disposition Disposition: Home, self care
[2020-12-16 21:28] LABS: Absolute Lymphocyte Count 1.12 X10^3/uL (0.83-4.51); Absolute Neutrophil Count 3.6 X10^3/uL (2.0-7.7); Basophil# 0.03 X10^3/uL; Basophil% 0.5 % (0-1); Eosinophil# 0.17 X10^3/uL; Eosinophils% 3.1 % (0-5); Hematocrit 39.2 % (40-54); Hemoglobin 13.1 g/dL (13.0-16.5); Lymphocyte # 1.12 X10^3/ul (0.83-4.51); Lymphocyte % 20.2 % (19-41); Mean Corp Hgb Conc 33.4 g/dL (32-36); Mean Corpuscular Hgb 30.8 pg (27.0-32.0); Mean Corpuscular Volume 92.2 fL (80-94); Mean Platelet Vol. 10.7 fl (6.2-12.0); Monocyte# 0.66 X10^3/uL; Monocyte% 11.9 % (0-10); NRBC Flagged by Analyzer 0 % (0-5); Neutrophil # 3.55 X10^3/uL (2.7-7.7); Neutrophil % 63.9 % (47-70); Platelet Count 155 K/mm3 (150-450); RBC Distribution Width SD 43.4 fl (35.1-43.9); Red Blood Count 4.25 M/mm3 (4.6-6.2); White Blood Count 5.6 K/mm3 (4.4-11.0)
--- NOTE | 2020-12-16 21:28 | RAD_ITS ---
STUDY: X-RAY CHEST REASON FOR EXAM: Male, 85 years old. Chest pain TECHNIQUE: Single AP portable view of the chest. COMPARISON: 11/06/2020 FINDINGS: EKG leads overlie the chest The lungs are clear and expanded. There is no demonstrated pleural abnormality. Normal size heart. Normal mediastinum and slick. Normal visualized pulmonary arteries. Normal visualized aortic arch and descending thoracic aorta. There are diffuse degenerative changes of the visualized thoracic spine. There is degenerative osteoarthritis of the bilateral shoulders. There is no demonstrated abnormality of the visualized soft tissue structures of the upper abdomen. RAD/Chest 1 View (Portable) IMPRESSION: No acute pulmonary process Electronically Signed: Davis Sanders MD at 22:23 EDT , Service support ,
[2020-12-16 21:36] LABS: International Normalized Ratio 2.5; Prothrombin Time (Protime)PT. 25.9 SECONDS (11.7-14.9)
[2020-12-16 21:49] LABS: Anion Gap 6 (5-15); BUN 22 mg/dL (7-18); BUN/Creat Ratio 13.1 RATIO (10-20); Calcium,Total 9.3 mg/dL (8.5-10.1); Chloride 109 mmol/L (98-107); Creatinine, Serum 1.68 mg/dL (0.70-1.30); EST Glomerular Filtration Rate 42 mL/min (>60); Est Glom Filt Rate - Afr Amer 50 mL/min (>60); Estimated Creatinine Clearance 31.85 ml/min; Glucose 98 mg/dL (74-106); Potassium 4.1 mmol/L (3.5-5.1); Sodium Level 142 mmol/L (136-145)
[2020-12-16 21:51] VITALS: BP 142/96; BP 149/96; BP 158/103; PULSE 65; PULSE 66; PULSE 72
== END 2020-12-16 22:43 | disposition home or self-care (01) ==
PROVIDERS: Emergency Provider Emergency Medicine; PCP Internal Medicine
DX: R42 Dizziness and giddiness (principal); I25.10 Atherosclerotic heart disease of native coronary artery without angina pectoris; I10 Essential (primary) hypertension; E78.5 Hyperlipidemia, unspecified; I48.91 Unspecified atrial fibrillation; N40.0 Benign prostatic hyperplasia without lower urinary tract symptoms; Z95.5 Presence of coronary angioplasty implant and graft; Z87.891 Personal history of nicotine dependence; Z79.82 Long term (current) use of aspirin; Z79.01 Long term (current) use of anticoagulants; Z79.899 Other long term (current) drug therapy
CPT/HCPCS: 70450; 71045; 80048; 84484; 85025; 85610; 93005; 99285; A4216

== ENCOUNTER → 2021-03-14 | Outpatient (CLI) | payer MEDICARE, SELFPAY ==
[2021-03-14 12:25] LABS: International Normalized Ratio 1.9; Prothrombin Time (Protime)PT. 20.6 SECONDS (11.7-14.9)
== END | disposition home or self-care (01) ==
LOC: LABSPEC 17:02
PROVIDERS: PCP Internal Medicine; Visit Provider Internal Medicine
DX: I48.20 Chronic atrial fibrillation, unspecified (principal); Z79.01 Long term (current) use of anticoagulants
CPT/HCPCS: 85610

== ENCOUNTER 2022-01-12 18:04 | Emergency (ER) | payer MEDICARE, SELFPAY ==
[2022-01-12 18:06] VITALS: BP 146/95; PULSE 96; RESP 18; TEMP 36.6; O2SAT 99; BMI 24.0
--- NOTE | 2022-01-12 18:24 | ED.VIS.LOWEX ---
HPI History of Present Illness Chief Complaint: Lower Extremity Injury Detail of Chief Complaint: Left hip soreness and bruising Informant: patient Narrative Narrative: Patient presents to the emergency department with complaint of left hip soreness and bruising that he noticed about 6 days ago. Patient presents via EMS from home. Patient states that because of the discomfort he is been spending more time in bed. Patient states that he had an elevated INR recently checked it was over 3 and sounds like he may have increased his Coumadin level and then had a repeated again 2 days ago and it was 4.7. Patient states they subsequently told him to take a day off from Coumadin and start back on the lower dose. Patient denies fall or trauma to his hip. He is able to ambulate. He denies chest pain or shortness of breath. He denies any fevers. [facility] Medical History Atherosclerosis of coronary artery of [place] heart without angina pectoris Benign neoplasm of colon BPH (benign prostatic hyperplasia) BPH (benign prostatic hyperplasia) Diverticulosis Essential (primary) hypertension HLD (hyperlipidemia) Longstanding persistent atrial fibrillation (06/2010) Nonrheumatic mitral (valve) prolapse Obstructive sleep apnea Retinal vein occlusion Home Medications aspirin 81 mg tablet,delayed release (Adult Aspirin Regimen) 81 mg PO DAILY 03/07/19 [History Last Taken 11/12/20] finasteride 5 mg tablet (Proscar) 5 mg PO DAILY 03/07/19 [History Last Taken Unknown] metoprolol tartrate 50 mg tablet 25 mg PO BID 03/07/19 [History Last Taken 11/12/20] multivitamin 1 tab PO DAILY 03/07/19 [History Last Taken Unknown] omega-3 fatty acids 1,000 mg capsule (Fish Oil Concentrate) 1,000 mg PO DAILY 03/07/19 [History Last Taken Unknown] saw palmetto 500 mg capsule 500 mg PO DAILY 03/07/19 [History Last Taken Unknown] simvastatin 80 mg tablet 40 mg PO QHS 03/07/19 [History Last Taken Unknown] cholecalciferol (vitamin D3) 25 mcg (1,000 unit) capsule 2,000 unit PO DAILY 09/29/19 [History Last Taken Unknown] lisinopril 10 mg tablet 5 mg PO QHS 09/29/19 [History Last Taken 11/12/20] carboxymethylcellulose sodium 0.5 % eye drops (Refresh Tears) 1 drp ophthalmic (eye) TID 07/16/20 [History Last Taken Unknown] nitroglycerin 0.4 mg sublingual tablet 0.4 mg sublingual Q5-15M PRN chest pain #25 tabs 07/16/20 [Rx Last Taken Unknown] warfarin 2 mg tablet 2 mg PO .3XW 07/16/20 [History Last Taken Unknown] warfarin 3 mg tablet 3 mg PO 4XW 07/16/20 [History Last Taken 11/07/20] clopidogrel 75 mg tablet 75 mg PO DAILY #90 tabs 12/06/20 [Rx Last Taken Unknown] hydrocodone-acetaminophen 5-325mg 5mg-325mg 1 tab PO Q4H PRN PRN Pain 2 days #10 TABLETS 01/12/22 [Rx Last Taken Unknown] Allergy/AdvReac Type Severity Reaction Status Date / Time cinnamon Allergy rash Verified 01/12/22 18:05 Penicillins Allergy hives Verified 01/12/22 18:05 chocolate Allergy rash Uncoded 01/12/22 18:05 Surgical History History of coronary artery stent placement (11/12/20) Stented coronary artery Social History Smoking Status: Former smoker how long ago did patient quit smokin07/09/10 alcohol intake: current alcohol intake frequency: a few times a month substance use type: does not use ROS ROS ED Review of Systems ROS Unobtainable: other Constitutional Constitutional ED: Reports lethargy; Denies chills, fever(s), sweats or weight loss Eyes Eyes: Denies blurry vision, change in vision or diplopia ENT ENT ED: Denies rhinorrhea or sore throat Cardiovascular Cardiovascular: Reports chest pain and racing heartbeat; Denies orthopnea Respiratory/Chest Respiratory/Chest: Reports dyspnea and dyspnea on exertion; Denies cough, orthopnea or sputum Gastrointestinal Gastrointestinal: Denies abdominal pain, diarrhea, nausea or vomiting Genitourinary Genitourinary ED: Denies dysuria, hematuria or urinary frequency Musculoskeletal Musculoskeletal: Reports other Details: Left hip pain with ecchymosis and bruising ; Denies arthralgias, back pain, myalgias or neck pain Integumentary Denies abscess, Abrasions or rash Neurologic Neurologic: Denies headache(s) or weakness Psychiatric Psychiatric: Denies anxiety, depression or suicidal thoughts Endocrine Endocrinology: Denies polydipsia, polyphagia or polyuria Hematologic/Lymphatic Hematologic/Lymphatic: Denies easy bleeding, easy bruising or lymphadenopathy Allergic/Immunologic Allergic/Immunologic ED: Denies mouth swelling, tongue swelling or urticaria EXAM Physical Exam Const Vital Signs: 01/12/22 18:06 Temperature 97.8 F Temperature Source Oral Pulse Rate 96 Respiratory Rate 18 Blood Pressure 146/95 H Blood Pressure Mean 112 Pulse Ox 99 Oxygen Delivery Method Room Air Positive well nourished and well developed General Appearance ED: well developed and NAD HEENT Reports TM's clear and moist mucous membranes normocephalic and atraumatic; Negative for trauma or tenderness Tympanic Membrane ED: Yes TM's clear Eyes PERRL and EOMs intact bilaterally General Eye ED: Negative for pale conjunctiva or scleral icterus Neck no lymphadenopathy, supple and no JVD General: Negative for tenderness Chest Wall inspection of chest normal and palpation of chest normal Chest: Negative for tenderness Resp normal respiratory effort and clear to auscultation bilaterally Effort and Inspection: Negative for respiratory distress or pain with movement Auscultation: Negative for rhonchi, wheezes or diminished lung sounds Cardio regular rate, regular rhythm, S1 normal heart sound, S2 normal heart sound and no murmurs Peripheral Pulses: pulses 2+ throughout GI normal to inspection, nondistended, normoactive bowel sounds, soft to palpation, non-tender, non-distended and no masses Back/Spine no CVA tenderness and no thoracic nor lumbar tenderness Extremity Extremity Narrative: Evaluation of the patient's left buttock and hip reveals that he does have what looks like an old hematoma over the left buttock with ecchymosis and bruising now down the posterior left thigh due to gravity. The bruising appears old as it is yellowish-orange in color. No discrete significant hematoma noted at this time. Patient also has some mild bruising to the lower back. No real bony tenderness on exam. He is able to stand and ambulate without difficulty. General Extremety ED: Negative for edema General Extremity: Negative for edema Neuro oriented x3, CN's II-XII intact bilaterally, no sensory deficits noted and gait normal Sensorium / Orientation: awake, alert, oriented to person, oriented to place and oriented to time Motor Exam: strength 5/5 throughout and strength abnormal Psych mental status grossly normal Skin no rashes or lesions noted and no wounds MDM MDM MDM Narrative Medical decision making narrative: Lab work-up showed a slight knee depressed hemoglobin of 11.2. His INR was 2.5. Platelet counts normal. At this point I suspect he likely had a spontaneous hemorrhage or may have developed a hematoma from bumping his buttock. There is no evidence of active bleeding. No evidence of infection. Patient will be given a prescription for [place] for pain for few days. Patient to follow-up with his primary care physician in 3 to 5 days. Lab Data Attestation: I reviewed the patient's lab results. Labs: Laboratory Results - last 24 hr 01/12/22 01/12/22 18:13 18:13 WBC 7.3 RBC 3.59 L Hgb 11.2 L Hct 34.1 L MCV 95.0 H MCH 31.2 MCHC 32.8 RDW Std Deviation 45.2 H RDW Coeff of [place] 13.1 Plt Count 215 MPV 10.4 Immature Gran % (Auto) 0.500 Neut % (Auto) 66.3 Lymph % (Auto) 18.7 L [place] % (Auto) 12.0 H Eos % (Auto) 1.8 Baso % (Auto) 0.7 Absolute Neuts (auto) 4.9 Absolute Lymphs (auto) 1.37 Nucleated RBC % 0 PT 26.8 H INR 2.5 Radiography Diagnostic Testing: Clinical Impression(s) from Imaging Studies Hip/Pelvis X-Ray 01/12/22 19:00 IMPRESSION: Normal x-ray examination of the pelvis and left hip. Electronically Signed: Cornell Valle DO at 20:07 EDT Reading Location ID and State: [address] [place] [address] Tel [phone], Service support , Three-view x-rays of left hip and pelvis obtained interpreted by myself as no acute fractures or dislocations. Radiology in agreement. Discharge Plan Triage Chief Complaint: Lower Extremity Injury ED Provider: Guevara Knight Dx/Rx/DC Orders Clinical Impression: Hematoma Instructions: ED Hematoma Prescriptions: New hydrocodone-acetaminophen [hydrocodone-acetaminophen] 1 TABLET tablet 1 tab PO Q4H PRN PRN (Reason: Pain) 2 Days Qty: 10 0RF No Action metoprolol tartrate 50 mg tablet 25 mg PO BID simvastatin 80 mg tablet 40 mg PO QHS finasteride [Proscar] 5 mg tablet 5 mg PO DAILY aspirin [Adult Aspirin Regimen] 81 mg tablet,delayed release (DR/EC) 81 mg PO DAILY saw palmetto 500 mg capsule 500 mg PO DAILY omega-3 fatty acids [Fish Oil Concentrate] 1,000 mg capsule 1,000 mg PO DAILY multivitamin Tablet 1 tab PO DAILY cholecalciferol (vitamin D3) 25 mcg (1,000 unit) capsule 2,000 unit PO DAILY lisinopril 10 mg tablet 5 mg PO QHS warfarin 2 mg tablet 2 mg PO .3XW Rx Instructions: Managed by Dr. Gregg warfarin 3 mg tablet 3 mg PO 4XW Rx Instructions: Managed by Dr. Gregg clopidogrel 75 mg tablet 75 mg PO DAILY Qty: 90 3RF Refresh Tears 0.5 % drops 1 drp OPHTHALMIC TID nitroglycerin 0.4 mg tablet, sublingual 0.4 mg SUBLINGUAL Q5-15M PRN (Reason: chest pain) Qty: 25 3RF Primary Care Provider: Yeni Gregg Referrals: Yeni Gregg MD [Primary Care Provider] - 3-5 Days Disposition Disposition: Home, Self Care
[2022-01-12 18:32] LABS: Absolute Lymphocyte Count 1.37 X10^3/uL (0.83-4.51); Absolute Neutrophil Count 4.9 X10^3/uL (2.0-7.7); Basophil# 0.05 X10^3/uL; Basophil% 0.7 % (0-1); Eosinophil# 0.13 X10^3/uL; Eosinophils% 1.8 % (0-5); Hematocrit 34.1 % (40-54); Hemoglobin 11.2 g/dL (13.0-16.5); Lymphocyte # 1.37 X10^3/ul (0.83-4.51); Lymphocyte % 18.7 % (19-41); Mean Corp Hgb Conc 32.8 g/dL (32-36); Mean Corpuscular Hgb 31.2 pg (27.0-32.0); Mean Platelet Vol. 10.4 fl (6.2-12.0); Monocyte# 0.88 X10^3/uL; NRBC Flagged by Analyzer 0 % (0-5); Neutrophil # 4.86 X10^3/uL (2.7-7.7); Neutrophil % 66.3 % (47-70); Platelet Count 215 K/mm3 (150-450); RBC Distribution Width CV 13.1 % (11.6-14.6); RBC Distribution Width SD 45.2 fl (35.1-43.9); Red Blood Count 3.59 M/mm3 (4.6-6.2); White Blood Count 7.3 K/mm3 (4.4-11.0)
[2022-01-12 18:41] LABS: International Normalized Ratio 2.5; Prothrombin Time (Protime)PT. 26.8 SECONDS (11.7-14.9)
[2022-01-12] MEDS: HYDROcodone Bitartrate/Apap 5/325 Tablet PO (19:00)
--- NOTE | 2022-01-12 19:00 | RAD_ITS ---
STUDY: X-RAY - PELVIS AND LEFT HIP REASON FOR EXAM: Male, 86 years old. Pain. TECHNIQUE: 3 views of the pelvis and hip. COMPARISON: None. FINDINGS: There is a non-specific bowel gas pattern. Normal visualized soft tissue structures. Normal bilateral iliac wings, sacroiliac joints and visualized sacrum. Normal bilateral superior and inferior pubic rami. Normal pubic symphysis. Normal bilateral ischial tuberosities. Normal visualized left femoral head. Normal acetabulum left. Normal left hip joint. RAD/HIP, UNI W/ Pelvis 2-3 Views IMPRESSION: Normal x-ray examination of the pelvis and left hip. Electronically Signed: Cornell Valle DO at 20:07 EDT ,
[2022-01-12 20:05] VITALS: BP 131/88; PULSE 72; RESP 15; O2SAT 99
[2022-01-12 21:20] VITALS: BP 131/88; PULSE 72; RESP 15; O2SAT 99
== END 2022-01-12 21:33 | disposition home or self-care (01) ==
PROVIDERS: Emergency Provider Emergency Medicine; PCP Internal Medicine; Visit Provider Emergency Medicine
DX: S70.02XA Contusion of left hip, initial encounter (principal); I25.10 Atherosclerotic heart disease of native coronary artery without angina pectoris; I10 Essential (primary) hypertension; E78.5 Hyperlipidemia, unspecified; Z79.82 Long term (current) use of aspirin; Z79.01 Long term (current) use of anticoagulants; Z79.899 Other long term (current) drug therapy; Z87.891 Personal history of nicotine dependence
CPT/HCPCS: 73502; 85025; 85610; 99284

== ENCOUNTER → 2022-01-17 | Outpatient (CLI) | payer MEDICARE, SELFPAY ==
[2022-01-17 16:02] LABS: International Normalized Ratio 1.6; Prothrombin Time (Protime)PT. 18.9 SECONDS (11.7-14.9)
== END | disposition home or self-care (01) ==
LOC: LABSPEC 15:41
PROVIDERS: PCP Internal Medicine; Visit Provider Clinical Nurse Specialist
DX: I48.20 Chronic atrial fibrillation, unspecified (principal)
CPT/HCPCS: 85610

== ENCOUNTER → 2022-01-22 | Outpatient (CLI) | payer MEDICARE, SELFPAY ==
[2022-01-22 10:56] LABS: International Normalized Ratio 1.5; Prothrombin Time (Protime)PT. 17.4 SECONDS (11.7-14.9)
== END | disposition home or self-care (01) ==
LOC: LABSPEC 10:40
PROVIDERS: PCP Internal Medicine; Visit Provider Internal Medicine
DX: I48.20 Chronic atrial fibrillation, unspecified (principal)
CPT/HCPCS: 85610

== ENCOUNTER → 2022-01-29 | Outpatient (CLI) | payer MEDICARE, SELFPAY ==
[2022-01-29 10:35] LABS: International Normalized Ratio 1.6; Prothrombin Time (Protime)PT. 18.4 SECONDS (11.7-14.9)
== END | disposition home or self-care (01) ==
LOC: LABSPEC 10:18
PROVIDERS: PCP Internal Medicine; Visit Provider Internal Medicine
DX: I48.0 Paroxysmal atrial fibrillation (principal)
CPT/HCPCS: 85610

== ENCOUNTER 2023-03-12 07:06 | Emergency (ER) | payer MEDICARE, SELFPAY ==
[2023-03-12] VITALS (11 sets, daily range): BP systolic 80–155; BP diastolic 64–115; PULSE 80–135; RESP 10–24; TEMP 35.5; O2SAT 93–100; BMI 21.9
--- NOTE | 2023-03-12 07:13 | ED.RN ---
PIN POINT FIXED PUPILS, RESPONDS TO PAINFUL STIMULI
--- NOTE | 2023-03-12 07:19 | EKG12_ITS ---
Test Reason : POSS STROKE Blood Pressure : / mmHG Vent. Rate : 129 BPM Atrial Rate : 000 BPM P-R Int : 000 ms QRS Dur : 100 ms QT Int : 338 ms P-R-T Axes : 000 079 -32 degrees QTc Int : 495 ms Atrial fibrillation with rapid ventricular response Nonspecific ST and T wave abnormality Abnormal ECG When compared with ECG of 16-DEC-2020 21:09, Vent. rate has increased BY [address] now depressed in Inferior leads Non-specific change in ST segment in Lateral leads Nonspecific T wave abnormality now evident in Inferior leads Nonspecific T wave abnormality now evident in Anterolateral leads Confirmed by SHERON ROBLES, BRI ([id number]), photograph editor JANIA WADSWORTH ([id number]) on 03/18/2023 10:05:29 AM Referred By: Confirmed By:BRI HOLBROOK MD
--- NOTE | 2023-03-12 07:19 | CT_ITS ---
STUDY: CT BRAIN WITHOUT CONTRAST REASON FOR EXAM: Male, 87 years old. AMS RADIATION DOSAGE (If Supplied By Facility): CTDIvol = ( 44.99 ) mGy, DLP = ( 829.85 ) mGycm TECHNIQUE: Transaxial CT imaging of the brain was performed without administration of intravenous contrast material. Individualized dose optimization techniques were used for this CT. COMPARISON: Comparison is made with prior study dated December 16, 2020. FINDINGS: Normal soft tissue structures. Normal calvarium. Mild degree of hydrocephalus. There is evidence of a subarachnoid hemorrhage, intraventricular hemorrhage as well as intracerebral hemorrhage involving the left frontal lobe. 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 Normal brainstem. Normal cerebellum. There are no findings of an acute ischemic infarction. Atherosclerotic calcification of the cavernous portions of the internal carotid arteries bilaterally. Normal visualized paranasal sinuses. CT/Brain/Head without Contrast IMPRESSION: Subarachnoid, interventricular hemorrhage as well as intracerebral hemorrhage involving the left frontal lobe with surrounding edema. Mild hydrocephalus. Electronically Signed: Jeffrey Jama MD at 9:06 EDT ,
--- NOTE | 2023-03-12 07:21 | RAD_ITS ---
INDICATION: NG Insertion EXAMINATION/TECHNIQUE: X-RAY - XR Abdomen 1 View: Supine AP view lower chest and upper abdomen COMPARISON: Concurrent chest x-ray FINDINGS: Enteric tube tip within proximal gastric lumen with distal side port at level of diaphragm. No significant bowel dilatation demonstrated. Mild bilateral perihilar and basilar pulmonary opacities again noted. Multilevel endplate spondylosis along spine. RAD/Abdomen Single View (Portable) IMPRESSION: 1. Recommend advancing enteric tube a few centimeters to clear distal side-port from level of GE junction. 2. Mild bilateral pulmonary opacity changes, see separate chest x-ray report. Electronically Signed: Adelso Landry MD at 7:47 EDT ,
--- NOTE | 2023-03-12 07:21 | EX.ED.DYSGE1 ---
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 BPH (benign prostatic hyperplasia) Diverticulosis Essential (primary) hypertension HLD (hyperlipidemia) Longstanding persistent atrial fibrillation (06/2010) Nonrheumatic mitral (valve) prolapse Obstructive sleep apnea Retinal vein occlusion Home Medications aspirin 81 mg tablet,delayed release (Adult Aspirin Regimen) 81 mg PO DAILY 03/07/19 [History Last Taken 11/12/20] finasteride 5 mg tablet (Proscar) 5 mg PO DAILY 03/07/19 [History Last Taken Unknown] multivitamin 1 tab PO DAILY 03/07/19 [History Last Taken Unknown] omega-3 fatty acids 1,000 mg capsule (Fish Oil Concentrate) 1,000 mg PO DAILY 03/07/19 [History Last Taken Unknown] saw palmetto 500 mg capsule 500 mg PO DAILY 03/07/19 [History Last Taken Unknown] simvastatin 80 mg tablet 40 mg PO QHS 03/07/19 [History Last Taken Unknown] cholecalciferol (vitamin D3) 25 mcg (1,000 unit) capsule 2,000 unit PO DAILY 09/29/19 [History Last Taken Unknown] lisinopril 10 mg tablet 5 mg PO QHS 09/29/19 [History Last Taken 11/12/20] carboxymethylcellulose sodium 0.5 % eye drops (Refresh Tears) 1 drp ophthalmic (eye) TID 07/16/20 [History Last Taken Unknown] nitroglycerin 0.4 mg sublingual tablet 0.4 mg sublingual Q5-15M PRN chest pain #25 tabs 07/16/20 [Rx Last Taken Unknown] rivaroxaban 20 mg tablet (Xarelto) 20 mg PO DAILY #90 tabs 07/03/22 [Rx Last Taken Unknown] isosorbide mononitrate 30 mg tablet,extended release 24 hr 30 mg PO DAILY #30 tabs 08/08/22 [Rx Last Taken Unknown] Allergy/AdvReac Type Severity Reaction Status Date / Time chocolate flavor Allergy Rash Verified 03/12/23 07:18 cinnamon Allergy rash Verified 03/12/23 07:18 Penicillins Allergy hives Verified 03/12/23 07:18 Surgical History History of coronary artery stent placement (11/12/20) Stented coronary artery Social History Smoking Status: Former smoker how long ago did patient quit smokin07/09/10 alcohol intake: current alcohol intake frequency: a few times a month substance use type: does not use EXAM Physical Exam Const Vital Signs: 03/12/23 07:08 03/12/23 07:14 03/12/23 07:17 Temperature 96 F L Temperature Source Temporal Pulse Rate 135 H 121 H Respiratory Rate 13 10 L Respiratory Pattern Blood Pressure 112/94 H Blood Pressure Mean 100 Pulse Ox 100 100 Oxygen Delivery Method Ambu-Bag Ambu-Bag Fraction of Inspired Oxygen (FIO2) 03/12/23 07:12 03/12/23 08:06 03/12/23 08:08 Temperature Temperature Source Pulse Rate 135 H 125 H 127 H Respiratory Rate 14 14 14 Respiratory Pattern Normal Blood Pressure 138/115 H Blood Pressure Mean 122 Pulse Ox 94 93 Oxygen Delivery Method Mechanical Ventilator Fraction of Inspired Oxygen (FIO2) 70 03/12/23 08:36 03/12/23 08:46 03/12/23 08:49 Temperature Temperature Source Pulse Rate 121 H 97 80 Respiratory Rate 14 14 Respiratory Pattern Blood Pressure 155/103 H 121/76 H Blood Pressure Mean 120 91 Pulse Ox 97 Oxygen Delivery Method Mechanical Ventilator Fraction of Inspired Oxygen (FIO2) 03/12/23 09:01 03/12/23 09:34 Temperature Temperature Source Pulse Rate 83 83 Respiratory Rate 24 H 24 H Respiratory Pattern Blood Pressure 80/64 L 80/64 L Blood Pressure Mean 69 69 Pulse Ox 93 93 Oxygen Delivery Method Mechanical Ventilator Fraction of Inspired Oxygen (FIO2) MDM MDM MDM Narrative Medical decision making narrative: HISTORY OF PRESENT ILLNESS: 87-year-old male here secondary to change in mental status. The patient does not provide reliable history. Per EMS patient was on the toilet he became cool and clammy and called EMS. Per EMS patient did ambulate to the cot and then became less responsive/unresponsive. Per EMS patient did have expressive aphasia. EMS states patient's blood sugar was greater than 200. They state his blood pressure was 180/57. They state patient has a history of atrial fibrillation but no other medical history was reported REVIEW OF SYSTEMS: Cannot obtain a reliable review of systems secondary to acuity of condition PHYSICAL EXAM: Nursing triage notes reviewed, Vital signs reviewed Constitutional: please see mdm HENT: MMM Eyes: Pupils are pinpoint minimally reactive to light Neck: No stridor, no JVD, full neck ROM Lungs: Bilateral breath sounds Heart: Fast irregular rate Abdomen: Soft : No CVAT Extremities: No edema Neuro: somnolent, responsive to painful stimuli, moves all 4 extremities Skin: No rash or lesions noted MEDICAL DECISION MAKING: Chief Complaint: Altered mental status External records reviewed: Prior imaging studies reviewed: CT scan of the brain from 2020 shows no acute hemorrhage Factors affecting care: none CAD, A-fib (on Xarelto), hypertension, hyperlipidemia Social determinants of health: none History obtained from others: EMS Goals of care discussion: Patient is full code patient's family stated they would like to not do nothing Consults: Internal medicine/critical care ALL IMAGES (IF OBTAINED) HAVE BEEN PERSONALLY REVIEWED AND INTERPRETED BY MYSELF. CBC with leukocytosis suggestive of systemic inflammation, mild anemia, no thrombocytopenia Coagulation studies without significant coagulopathy ABG with metabolic acidosis CMP with mild hypokalemia, there is no anion gap, there is baseline CKD, there is mild hyperbilirubinemia otherwise no evidence of elevation in liver enzymes to suggest obstructive hepatobiliary pathology Magnesium was within normal limits Lactate is elevated consistent with endorgan hypoperfusion Troponin elevated consistent with myocardial ischemia BNP elevated consistent with myocardial stretch Lipase is wnl indicating no pancreatic inflammation. TSH, T3 and T4 within normal limits Urine drug screen is edge negative Serum alcohol is negative Chest x-ray read reviewed by myself shows evidence of right lower lobe pneumonia [facility] Narrative: Patient was initially somnolent, altered responsive only to painful stimuli mostly posturing motions with pinpoint pupils and sonorous respirations. Patient was not protecting his airway. He was intubated immediately for airway protection. Please see below procedure note. I considered the following differential diagnosis: ICH, ACS, metabolic encephalopathy, infectious encephalopathy, thyroid dysfunction, drug overdose After intubation patient was kept on the monitor, OG tube was placed, Hernandez was placed. Given the pinpoint nature of the patient's pupils he was prophylactically made 2 mg of IV Narcan. There was only minimal response to this intervention. I obtained a broad lab and imaging work-up to further elucidate the etiology of the patient's complaints. I obtained a CT scan of the patient's head to rule out intracranial hemorrhage. I obtain labs including ammonia, LFTs to ascertain any evidence of hepatic encephalopathy. Obtained urine, urine cultures blood cultures to ascertain any infectious etiologies. Also obtain TSH to ascertain any thyroid dysfunction. Obtained a chest x-ray to rule out pneumonia. I personally the patient CT scan showed evidence of a large intracranial hemorrhage. This point the patient's bed placed at greater 30 degrees. Blood pressure was controlled with a systolic blood pressure goal less than 140. Is given Keppra. Given mannitol. He was hyperventilated. Arrangements were made for transport. Discussed with neurosurgeon at [facility] Dr. Coon. He accepted the patient's case. Patient was transferred by [facility]. Patient leukocytosis, elevated lactate and signs of pneumonia. Family updated. The procedure was performed by myself. Indications: Airway protection Procedure Description: Patient was preoxygenated with nonrebreather, in the supine position video laryngoscope was used with a 7.5 tube with good visualization of the cords grade 1 view no immediate complications Post-Procedure Assessment: Tracheal intubation was confirmed with breath sounds auscultated equally bilaterally; appropriate color change with end tidal CO2 detector and waveform capnography. The patient tolerated the procedure well with no immediate complications. Shared decision making: I will have a discussion with the patient and or visitors regarding risk/benefits of further testing or admission. They will be made aware of of the risk/benefits inherent in this decision they will be given the opportunity to voice understanding. Total critical care time today provided was at least 60 minutes. This excludes separately billable procedures. Critical care time (if documented) is secondary to the patient having high probability of clinically significant/life threatening deterioration in the patient's condition which required my urgent intervention. Impression: 1. Acute intracranial hemorrhage 2. History of anticoagulation 3. NSTEMI 4. Elevated lactate 5. Aspiration pneumonia Dispo: Transfer to [facility] Lab Data Attestation: I reviewed the patient's lab results. Labs: Laboratory Results - last 24 hr 03/12/23 03/12/23 03/12/23 07:14 07:20 07:31 WBC 17.0 H RBC 4.13 L Hgb 12.9 L Hct 40.5 MCV 98.1 H MCH 31.2 MCHC 31.9 L RDW Std Deviation 46.1 H RDW Coeff of Rosana 13.0 Plt Count 171 MPV 11.1 Immature Gran % (Auto) 0.800 Neut % (Auto) 79.8 H Lymph % (Auto) 12.1 L [place] % (Auto) 6.7 Eos % (Auto) 0.2 Baso % (Auto) 0.4 Absolute Neuts (auto) 13.5 H Absolute Lymphs (auto) 2.06 Nucleated RBC % 0 PT 24.5 H INR 2.2 APTT 28.8 Sodium 138 Potassium 3.4 L Chloride 107 Carbon Dioxide 17.0 L Anion Gap 14 BUN 26 H Creatinine 1.56 H Estim Creat Clear Calc 35.89 Est GFR (MDRD) Af Amer 55 L Est GFR (MDRD) Non-Af 45 L BUN/Creatinine Ratio 16.7 Glucose 288 H Lactic Acid 7.5 H* Calcium 9.0 Magnesium 2.3 Total Bilirubin 1.20 H AST 28 ALT 20 Alkaline Phosphatase 81 Ammonia 36.0 H Total Creatine Kinase 117 Troponin I High Sens 2691 H* B-Natriuretic Peptide Cancelled Total Protein 7.0 Albumin 3.6 Globulin 3.4 Albumin/Globulin Ratio 1.1 Lipase 26 TSH 2.92 Free T4 1.02 Free T3 pg/dL 2.4 Urine Color Yellow Urine Clarity Clear Urine pH 6.0 Ur Specific [place] 1.020 Urine Protein 100 H Urine Glucose (UA) 250 H Urine Ketones 50 H Urine Occult Blood 10 H Urine Nitrite Negative Urine Bilirubin Negative Urine Urobilinogen Normal Ur Leukocyte Esterase Negative Urine Opiates Screen NEGATIVE Urine Methadone Screen NEGATIVE Ur Barbiturates Screen NEGATIVE Ur Phencyclidine Scrn NEGATIVE Ur Amphetamines Screen NEGATIVE MDMA (Ecstasy) Screen NEGATIVE U Benzodiazepines Scrn NEGATIVE Urine Cocaine Screen NEGATIVE U Cannabinoids Screen NEGATIVE Ur Drug Screen Comment Ethyl Alcohol < 3.0 03/12/23 07:31 WBC RBC Hgb Hct MCV MCH MCHC RDW Std Deviation RDW Coeff of [place] Plt Count MPV Immature Gran % (Auto) Neut % (Auto) Lymph % (Auto) [place] % (Auto) Eos % (Auto) Baso % (Auto) Absolute Neuts (auto) Absolute Lymphs (auto) Nucleated RBC % PT INR APTT Sodium Potassium Chloride Carbon Dioxide Anion Gap BUN Creatinine Estim Creat Clear Calc Est GFR (MDRD) Af Amer Est GFR (MDRD) Non-Af BUN/Creatinine Ratio Glucose Lactic Acid Calcium Magnesium Total Bilirubin AST ALT Alkaline Phosphatase Ammonia Total Creatine Kinase Troponin I High Sens B-Natriuretic Peptide 373.1 H Total Protein Albumin Globulin Albumin/Globulin Ratio Lipase TSH Free T4 Free T3 pg/dL Urine Color Urine Clarity Urine pH Ur Specific [place] Urine Protein Urine Glucose (UA) Urine Ketones Urine Occult Blood Urine Nitrite Urine Bilirubin Urine Urobilinogen Ur Leukocyte Esterase Urine Opiates Screen Urine Methadone Screen Ur Barbiturates Screen Ur Phencyclidine Scrn Ur Amphetamines Screen MDMA (Ecstasy) Screen U Benzodiazepines Scrn Urine Cocaine Screen U Cannabinoids Screen Ur Drug Screen Comment Ethyl Alcohol ABG Data ABG results: ABG 03/12/23 08:14 Specimen Type ART Sample Site L Radial pH 7.15 L* Bicarbonate Actual 15.0 L Total CO2 16 Base Excess -14 L O2 Saturation 97 O2 % 70.0 ABG pCO2 43.1 ABG pO2 110 H Steve Test Positive Respiration Rate 14 O2 Delivery Device Adult Vent Vent Mode AC Tidal Volume 450.0 POC PEEP 5 Crit Call To/Read Back Yes Blood Gas Notified Whom byron Blood Gas Notified Time 08:15:50 Radiography Chest X-Ray - ED: Read by ED Physician Diagnostic Testing: Clinical Impression(s) from Imaging Studies Brain CT 03/12/23 07:19 IMPRESSION: Subarachnoid, interventricular hemorrhage as well as intracerebral hemorrhage involving the left frontal lobe with surrounding edema. Mild hydrocephalus. Electronically Signed: Jeffrey Jama MD at 9:06 EDT , KUB X-Ray 03/12/23 07:21 IMPRESSION: 1. Recommend advancing enteric tube a few centimeters to clear distal side-port from level of GE junction. 2. Mild bilateral pulmonary opacity changes, see separate chest x-ray report. Electronically Signed: Adelso Landry MD at 7:47 EDT , Chest X-Ray 03/12/23 07:25 IMPRESSION: 1. Recommend advancing enteric tube a few centimeters to clear distal side-port from level of GE junction. 2. Mild pulmonary edema/congestion with superimposed bibasilar atelectasis versus infiltrate. Electronically Signed: Adelso Landry MD at 7:46 EDT , CT scan of the brain read by myself shows large anterior cerebral hemorrhage, subarachnoid hemorrhage Chest x-ray by myself shows good tube placement possible infiltrate KUB read myself shows no evidence of intra-abdominal perforation, shows good tube placement Discharge Plan Triage Chief Complaint: Unresponsive ED Provider: Jean Collins Dx/Rx/DC Orders Prescriptions: No Action simvastatin 80 mg tablet 40 mg PO QHS finasteride [Proscar] 5 mg tablet 5 mg PO DAILY aspirin [Adult Aspirin Regimen] 81 mg tablet,delayed release (DR/EC) 81 mg PO DAILY saw palmetto 500 mg capsule 500 mg PO DAILY omega-3 fatty acids [Fish Oil Concentrate] 1,000 mg capsule 1,000 mg PO DAILY multivitamin Tablet 1 tab PO DAILY cholecalciferol (vitamin D3) 25 mcg (1,000 unit) capsule 2,000 unit PO DAILY lisinopril 10 mg tablet 5 mg PO QHS Refresh Tears 0.5 % drops 1 drp OPHTHALMIC TID nitroglycerin 0.4 mg tablet, sublingual 0.4 mg SUBLINGUAL Q5-15M PRN (Reason: chest pain) Qty: 25 3RF Xarelto 20 mg tablet 20 mg PO DAILY Qty: 90 3RF Rx Instructions: must administer with evening meal isosorbide mononitrate 30 mg tablet extended release 24 hr 30 mg PO DAILY Qty: 30 11RF Primary Care Provider: Yeni Gregg Referrals: Yeni Gregg MD [Primary Care Provider] -
--- NOTE | 2023-03-12 07:25 | RAD_ITS ---
INDICATION: AMS, tube placement EXAMINATION/TECHNIQUE: X-RAY - AP view of chest COMPARISON: Chest x-ray from 12/16/2020 FINDINGS: LINES/DEVICES: ET tube tip at level of clavicular heads. Enteric tube tip within proximal gastric lumen with distal side port at level of diaphragm. LUNGS: Hazy and prominent bilateral pulmonary interstitial opacities. Superimposed mild bibasilar opacities also noted. No sizable pleural effusion. No detectable pneumothorax. MEDIASTINUM AND CARDIOVASCULAR STRUCTURES: Heart size within normal limits for imaging technique. Atherosclerotic calcifications along aorta. BONES AND SOFT TISSUES: Skeletal degenerative changes. RAD/Chest 1 View (Portable) IMPRESSION: 1. Recommend advancing enteric tube a few centimeters to clear distal side-port from level of GE junction. 2. Mild pulmonary edema/congestion with superimposed bibasilar atelectasis versus infiltrate. Electronically Signed: Adelso Landry MD at 7:46 EDT ,
[2023-03-12 07:32] LABS: Absolute Lymphocyte Count 2.06 X10^3/uL (0.83-4.51); Absolute Neutrophil Count 13.5 X10^3/uL (2.0-7.7); Basophil# 0.06 X10^3/uL; Basophil% 0.4 % (0-1); Eosinophil# 0.04 X10^3/uL; Eosinophils% 0.2 % (0-5); Hematocrit 40.5 % (40-54); Hemoglobin 12.9 g/dL (13.0-16.5); Lymphocyte # 2.06 X10^3/ul (0.83-4.51); Lymphocyte % 12.1 % (19-41); Mean Corp Hgb Conc 31.9 g/dL (32-36); Mean Corpuscular Hgb 31.2 pg (27.0-32.0); Mean Corpuscular Volume 98.1 fL (80-94); Mean Platelet Vol. 11.1 fl (6.2-12.0); Monocyte# 1.14 X10^3/uL; Monocyte% 6.7 % (0-10); NRBC Flagged by Analyzer 0 % (0-5); Neutrophil # 13.54 X10^3/uL (2.7-7.7); Neutrophil % 79.8 % (47-70); Platelet Count 171 K/mm3 (150-450); RBC Distribution Width SD 46.1 fl (35.1-43.9); Red Blood Count 4.13 M/mm3 (4.6-6.2)
[2023-03-12] MEDS: 0.9% Normal Saline (500mL Bag) 500 ML 1000 ML IV (07:40)
[2023-03-12] MEDS: Propofol 10MG/Ml 1,000 MG/100 ML Bottle 2.2 MG CONT INF (07:41)
[2023-03-12 07:47] LABS: International Normalized Ratio 2.2; Partial Thromboplast Time 28.8 Seconds (24.1-36.2); Prothrombin Time (Protime)PT. 24.5 SECONDS (11.7-14.9)
[2023-03-12 07:54] LABS: Alcohol, Blood (Medical)-Serum < 3.0 mg/dL
[2023-03-12 07:57] LABS: CPK Total, Creatine Kinase 117 U/L (39-308)
[2023-03-12 08:04] LABS: Amphetamine Urine VISTA NEGATIVE (<1000 ng/mL); Barbiturate Urine VISTA NEGATIVE (< 200 ng/mL); Benzodiazepine Urine VISTA NEGATIVE (< 200 ng/mL); Cocaine Urine VISTA NEGATIVE (< 300 ng/mL); Ecstacy Urine VISTA NEGATIVE (< 500 ng/mL); Methadone Urine VISTA NEGATIVE (< 300 ng/mL); PCP Urine VISTA NEGATIVE (< 25 ng/mL); THC Urine VISTA NEGATIVE (< 50 ng/mL); Vista UDS pH Range 5
[2023-03-12 08:05] LABS: ALB/GLOB Ratio 1.1 RATIO (0.9-2.4); AST(SGOT) 28 U/L (15-37); Alanine Aminotransfer ALT/SGPT 20 U/L (16-61); Albumin, Serum 3.6 g/dL (3.2-5.0); Alkaline Phosphatase 81 U/L (45-117); Anion Gap 14 (5-15); BUN 26 mg/dL (7-18); BUN/Creat Ratio 16.7 RATIO (10-20); Chloride 107 mmol/L (98-107); Creatinine, Serum 1.56 mg/dL (0.70-1.30); EST Glomerular Filtration Rate 45 mL/min (>60); Est Glom Filt Rate - Afr Amer 55 mL/min (>60); Estimated Creatinine Clearance 35.89 ml/min; Free T3 2.4 pg/mL (2.18-3.98); Globulin 3.4 g/dL (2.2-4.2); Glucose 288 mg/dL (74-106); Lipase 26 U/L (13-75); Magnesium 2.3 mg/dL (1.6-2.6); Potassium 3.4 mmol/L (3.5-5.1); Sodium Level 138 mmol/L (136-145); T4 Free Direct 1.02 ng/dL (0.76-1.46); Thyroid Stim Hormone (TSH) 2.92 uIU/mL (0.358-3.74); Troponin-I HS 2691 pg/mL (3.0-78.0)
[2023-03-12 08:10] LABS: BNP,B-Type NATRIURETIC PEPTIDE 373.1 pg/mL (0-100)
[2023-03-12 08:14] LABS: Lactic Acid 7.5 mmol/L (0.4-1.9)
[2023-03-12 08:18] LABS: Allen Test Positive; Base Excess -14 mmol/L (-2 to +2); Blood Gas Specimen Type ART; Mode AC; O2 Delivery Device Adult Vent; PEEP 5; PO2 110 mmHG (75-100); RR 14; SITE L Radial; SO2 97 % (95-99); Total Carbon Dioxide 16 mmol/L; pCO2 43.1 mmHg (35-45); pH 7.15 (7.35-7.45)
[2023-03-12] MEDS: Cefepime HCl 2 GM in 0.9% Normal Saline (100mL MB+) 100 ML IV (08:19)
--- NOTE | 2023-03-12 08:23 | ED.RN ---
dark silverish necklace given to . med alert necklace was not on pt.
[2023-03-12 08:29] LABS: Color, Urine Yellow (Yellow); Glucose, Dipstick 250 mg/dl (Normal); Ketone-Dipstick 50 mg/dl (Negative); Leukocyte Esterase-Dipstick Negative /ul (Negative); Nitrite-Dipstick Negative (Negative); Occult Blood-Urine 10 /ul (Negative); Protein-Dipstick 100 mg/dl (Negative); Urine Bilirubin Dipstick Negative (Negative); Urine Clarity Clear (Clear); Urine Urobilinogen Normal (Normal)
[2023-03-12] MEDS: Metoprolol Tartrate 5 MG/5 ML Vial IV (08:43)
[2023-03-12] MEDS: Vancomycin IV 1,000 MG/200 ML BAG 200 MG IV (08:51)
--- NOTE | 2023-03-12 08:56 | ED.RN ---
called pharmacy regarding riley, was told it's a process.
[2023-03-12] MEDS: Phytonadione (Vit K) 10 MG in 0.9% Normal Saline (50mL Bag) 50 ML 153 MG IV (09:05)
[2023-03-12] MEDS: HUMAN PROTHROMBIN COMPLX(PCC) 3,500 UNIT in Viaflex Bag 1 BAG 500 UNIT IV (09:12)
--- NOTE | 2023-03-12 09:14 | ED.RN ---
[facility] transport at bedside.. pt is now on there monitoring.
--- NOTE | 2023-03-12 09:15 | ED.RN ---
i had two ivac in the ed for meds. [facility] had been called. never received prior to transport arriving.
[2023-03-12 09:56] LABS: Bedside Glucose 266 mg/dL (74-106)
[2023-03-12 11:42] LABS: Reflex Lactate? Y
== END 2023-03-12 09:46 | disposition short-term general hospital (02) ==
PROVIDERS: Emergency Provider Emergency Medicine; PCP Internal Medicine; Visit Provider Emergency Medicine
DX: J69.0 Pneumonitis due to inhalation of food and vomit (principal); I48.91 Unspecified atrial fibrillation; I62.9 Nontraumatic intracranial hemorrhage, unspecified; I21.4 Non-ST elevation (NSTEMI) myocardial infarction; I25.10 Atherosclerotic heart disease of native coronary artery without angina pectoris; R41.82 Altered mental status, unspecified; R47.01 Aphasia; R74.02 Elevation of levels of lactic acid dehydrogenase [LDH]; E78.5 Hyperlipidemia, unspecified; I10 Essential (primary) hypertension; Z87.891 Personal history of nicotine dependence; Z79.01 Long term (current) use of anticoagulants
CPT/HCPCS: 31500; 36600; 51702; 70450; 71045; 74018; 80053; 80307; 81002; 82077; 82140; 82550; 82803; 82962; 83605; 83690; 83735; 83880; 84439; 84443; 84481; 84484; 85025; 85610; 85730; 87040; 87086; 87428; 93005; 94002; 96365; 96367; 96375; 99252; 99285; J7030; J7040; J7168; A4216; G0463; J3490